=== PATIENT | male | born 1990 | race Two or more races ===

== ENCOUNTER 2019-04-22 16:40 | Emergency (ER) | payer BC, OTHER ==
[2019-04-22] MEDS ORDERED: Erythromycin Base 0.5% Ophth Oint 1 GM Tube EYELF ONE (17:10)
--- NOTE | 2019-04-22 17:11 | EDM.PDOC ---
ED HPI GENERAL MEDICAL PROBLEM - General Chief Complaint: Respiratory Problem Stated Complaint: RECENT TRAVEL OUTSIDE OF THE COUNTRY Time Seen by Provider: 04/22/19 17:07 Source of Information: Reports: Patient History Limitations: Reports: No Limitations - History of Present Illness INITIAL COMMENTS - FREE TEXT/NARRATIVE: HISTORY AND PHYSICAL: History of present illness: Patient is a 28-year-old male who presents to the emergency room to be tested for "coronavirus". Patient states approximately a week ago he was in [place] and returned back to work. His employer was concerned as his flight was international and felt he could have been exposed to the coronavirus. Patient states he is asymptomatic and feels overall well. He states that if it were not for his employer he would not be here or seek any type of medical attention as he has no symptoms. He has not had any exposure to anyone who is been ill and has not been informed of having any exposure to anyone who is had COVID- 19. On a side note he states that he was eating some Doritos and had quickly scratched his eye and does have some scleral injection on the left eye. He states this is unrelated to his travel or reason for being here today. He does not wear contact lenses or glasses. Pain started immediately after he abruptly went to rub his eye while he had chips in his hand. Patient denies any fever, chills, headache, change in vision, syncope or near syncope. Denies any chest pain, back pain, shortness of breath or cough. Denies any abdominal pain, nausea, vomiting, diarrhea, constipation or dysuria. Has not noted any blood in urine or stool. Patient has been eating and drinking appropriately. Review of systems: As per history of present illness and below otherwise all systems reviewed and negative. Past medical history: As per history of present illness and as reviewed below otherwise noncontributory. Surgical history: As per history of present illness and as reviewed below otherwise noncontributory. Social history: See social history for further information Family history: As per history of present illness and as reviewed below otherwise noncontributory. Physical exam: General: Developed and well nourished 28-year-old male. Alert and oriented. Nontoxic-appearing and in no acute distress. HEENT: Atraumatic, normocephalic, pupils equal and reactive bilaterally, negative for conjunctival pallor or scleral icterus, scleral injection of the left eye, mucous membranes moist, TMs normal bilaterally, throat clear, neck supple, nontender, trachea midline. No drooling or trismus noted. No meningeal signs. No hot potato voice noted. Lungs: Clear to auscultation, breath sounds equal bilaterally, chest nontender. Heart: S1S2, regular rate and rhythm without overt murmur Abdomen: Soft, nondistended, nontender. Negative for masses or costovertebral tenderness. Skin: Intact, warm, dry. No lesions or rashes noted. Extremities: Atraumatic, moves all extremities per self without difficulty or deficits, negative for cords or calf pain. Neurovascular unremarkable. Neuro: Awake, alert, oriented. Cranial nerves II through XII unremarkable. Cerebellum unremarkable. Motor and sensory unremarkable throughout. Exam nonfocal. Notes: Normal visual acuity. He does have a corneal abrasion on the left eye at the 4 o'clock position of the sclera. No foreign body noted. The patient's original complaint and reason for being here is to be assessed for coronavirus. I did instruct the patient that he has to meet certain criteria in order to be tested for COVID-19. Since he is currently asymptomatic I do not feel he needs any form of diagnostics at this time. We did discuss signs and symptoms that would prompt him to return to the emergency room. Supportive care measures were reviewed and discussed. Voices understanding and is agreeable to plan of care. Denies any further questions or concerns at this time. Diagnostics: None Therapeutics: Erythromycin Prescription: Erythromycin Impression: Encounter for medical screening exam Corneal abrasion, left Plan: 1. Your physical exam along with your vital signs are normal. The CDC has multiple criteria you have to meet before they will test for COVID-19. You do not meet any of these criteria. If you do become symptomatic you can return to the emergency room for re-evaluation or self quarantine for 14 days. You may return to work at this time. 2. Please use the erythromycin 5 times daily in the affected eye over the next 5 days, this is unrelated to your recent travel. 3. Please follow-up with your primary care provider as we discussed. Return to the ED as needed and as discussed. Definitive disposition and diagnosis as appropriate pending reevaluation and review of above. - Related Data Allergies Allergy/AdvReac Type Severity Reaction Status Date / Time No Known Allergies Allergy Verified 04/22/19 16:54 Home Meds: Home Meds Erythromycin Base [Erythromycin 0.5% Ophth Oint] 1 applic OP Q4H 5 Days #1 tube 04/22/19 [Rx] Past Medical History - Past Health History Medical/Surgical History: Denies Medical/Surgical History - Infectious Disease History Infectious Disease History: Reports: Chicken Pox, Measles Social & Family History - Family History Family Medical History: Noncontributory - Tobacco Use Smoking Status *Q: Never Smoker - Recreational Drug Use Recreational Drug Use: No ED ROS GENERAL - Review of Systems Review Of Systems: Comprehensive ROS is negative, except as noted in HPI. ED EXAM, GENERAL - Physical Exam Exam: See Below (See dictation) Course - Vital Signs Last Recorded V/S: Last Vital Signs Temp 97.1 F 04/22/19 16:51 Pulse 71 04/22/19 17:17 Resp 17 04/22/19 17:17 BP 134/79 04/22/19 17:17 Pulse Ox 99 04/22/19 17:17 - Orders/Labs/Meds Meds: Medications Discontinued Medications Generic Name Dose Route Start Last Admin Trade Name Shireen PRN Reason Stop Dose Admin Erythromycin 1 gm 04/22/19 17:10 04/22/19 17:30 Erythromycin 0.5% Ophth Oint EYELF 04/22/19 17:11 1 gram ONETIME ONE Administration Departure - Departure Time of Disposition: 17:10 Disposition: Home, Self-Care 01 Clinical Impression: Encounter for medical screening examination Corneal abrasion, left Qualifiers: Encounter type: initial encounter Qualified Code(s): S05.02XA - Injury of conjunctiva and corneal abrasion without foreign body, left eye, initial encounter - Discharge Information Prescriptions: Erythromycin Base [Erythromycin 0.5% Ophth Oint] 1 applic OP Q4H 5 Days #1 tube Instructions: Corneal Abrasion, [id number], Medical Screening Exam Referrals: PCP,None [Primary Care Provider] - Forms: ED Department Discharge Additional Instructions: The following information is given to patients seen in the emergency department who are being discharged to home. This information is to outline your options for follow-up care. We provide all patients seen in our emergency department with a follow-up referral. The need for follow-up, as well as the timing and circumstances, are variable depending upon the specifics of your emergency department visit. If you don't have a primary care physician on staff, we will provide you with a referral. We always advise you to contact your personal physician following an emergency department visit to inform them of the circumstance of the visit and for follow-up with them and/or the need for any referrals to a consulting specialist. The emergency department will also refer you to a specialist when appropriate. This referral assures that you have the opportunity for follow-up care with a specialist. All of these measure are taken in an effort to provide you with optimal care, which includes your follow-up. Under all circumstances we always encourage you to contact your private physician who remains a resource for coordinating your care. When calling for follow-up care, please make the office aware that this follow-up is from your recent emergency room visit. If for any reason you are refused follow-up, please contact the [facility] Emergency Department at and asked to speak to the emergency department charge nurse. [facility] [address] [place] [address] [id number] [facility] [address] [place] [address] 1. Your physical exam along with your vital signs are normal. The CDC has multiple criteria you have to meet before they will test for COVID-19. You do not meet any of these criteria. If you do become symptomatic you can return to the emergency room for re-evaluation or self quarantine for 14 days. You may return to work at this time. 2. Please use the erythromycin 5 times daily in the affected eye over the next 5 days, this is unrelated to your recent travel. 3. Please follow-up with your primary care provider as we discussed. Return to the ED as needed and as discussed. Sepsis Event Note - Evaluation Sepsis Screening Result: No Definite Risk - Focused Exam Vital Signs: Vital Signs Temp Pulse Resp BP Pulse Ox 04/22/19 17:17 71 17 134/79 99 04/22/19 16:51 97.1 F 77 16 147/93 H 97 Date Exam was Performed: 04/22/19 Time Exam was Performed: 21:52
== END 2019-04-22 17:31 | disposition home or self-care (01) ==
LOC: MW.ED 16:40
DX: S05.02XA Injury of conjunctiva and corneal abrasion without foreign body, left eye, initial encounter (principal); X58.XXXA Exposure to other specified factors, initial encounter
CPT/HCPCS: 99283; A9270